=== PATIENT | male | born 1955 | race Two or more races ===

== ENCOUNTER → 2016-08-08 | Day surgery (SDC) | payer MEDICAID ==
[2016-08-08] VITALS (8 sets, daily range): BP systolic 110–132; BP diastolic 52–83
[~2016-08-08] VITALS: Ht 174 cm; Wt 73.0 kg
[~2016-08-08] MED LIST: CALCIUM600 M1 PO; FOLGARD TABLET1 EAC1 PO; LR 1000ml 1,000 ML IVLG SCH; LR 1000ml ONE; LUPRON DEPOT3.75 M1 IM; Midazolam 2mg/2ml Inj ONE; Propofol 10mg/ml 20ml IV ONE; fentaNYL 100 mcg/2 mL IV ONE
--- NOTE | 2016-08-08 10:40 | Pre-Procedure Note/Attestation ---
Pre-Procedure Note/Attestation Complete Prior to Procedure Planned Procedure: not applicable Procedure Narrative: screening colon Indications for Procedure Pre-Operative Diagnosis: screening Attestation I attest that I discussed the nature of the procedure; its benefits; risks and complications; and alternatives (and the risks and benefits of such alternatives ), prior to the procedure, with the patient (or the patient's legal service support representative). I attest that, if there was a reasonable possibility of needing a blood transfusion, the patient (or the patient's legal service support representative) was given the [facility] standardized written summary, pursuant to the Jamie [place]ie Blood Safety Act ([place] Health and Safety Code # 1645, as amended). I attest that I re-evaluated the patient just prior to the surgery and that there has been no change in the patient's H&P, except as documented below: TATI COOPER Aug 08, 2016 10:40
--- NOTE | 2016-08-08 10:41 | Short Stay Surgery H&P ---
History of Present Illness History of Present Illness Chief Complaint se recent consult HPI Sukh Barreto is a 61 year old male who was admitted on for Colon Screening Patient History Allergies: Coded Allergies: No Known Allergies (Unverified , 08/08/16) PAST MEDICAL HISTORY: Past Surgeries: Social History: Medication History Scheduled Calcium Carbonate (Calcium), 600 MG PO DAILY, (Reported) Leuprolide Acetate (Lupron Depot), Unknown Dose IM once a month, (Reported) Vit D3/Folic Acid/B2/B6/B12 (Folgard Tablet), 15,000 UNITS PO ONCE A WEEK, ( Reported) Physical Exam Vital Signs Last Vital Signs Date Time Temp Pulse Resp B/P Pulse Ox O2 Delivery O2 Flow Rate FiO2 08/08/16 09:28 97.7 56 18 113/83 100 Room Air Plan Attestation Are the patient's medical conditions optimized for surgery? TATI COOPER Aug 08, 2016 10:41
--- NOTE | 2016-08-08 11:13 | Anethesia Preoperative Eval ---
Anesthesia Pre-op PMH/ROS General Date of Evaluation: Aug 08, 2016 Time of Evaluation: 10:56 Anesthesiologist: Federico ASA Score: ASA 2 Mallampati Score Class I : Soft palate, uvula, fauces, pillars visible Class II: Soft palate, uvula, fauces visible Class III: Soft palate, base of uvula visible Class IV: Only hard plate visible Mallampati Classification: Class II Surgeon: Dom Diagnosis: Colon CA screning Surgical Procedure: Colonoscopy Anesthesia History: none Family History: no anesthesia problems Allergies: Coded Allergies: No Known Allergies (Unverified , 08/08/16) Medications: see eMAR Past Medical History Cardiovascular: Denies: CAD, HTN, CT, arrhythmia, other, valve dz Pulmonary: Denies: COPD, [place], asthma, other Gastrointestinal/Genitourinary: Reports: GERD, other - Prostate CA s/p Sx, Denies: CRI, ESRD Neurologic/Psychiatric: Denies: CVA, TIA, dementia, depression/anxiety, other Endocrine: Denies: DM, hypothyroidism, other, steroids HEENT: Denies: [place] (L), [place] (R), cataract (L), cataract (R), glaucoma, other Hematology/Immune: Denies: DVT, anemia, bleeding disorder, other Musculoskeletal/Integumentary: Denies: DDD, DJD, OA, RA, edema, other PMH Narrative: as a car Anesthesia Pre-op Phys. Exam Physician Exam Last Vital Signs Date Time Temp Pulse Resp B/P Pulse Ox O2 Delivery O2 Flow Rate FiO2 08/08/16 09:28 97.7 56 18 113/83 100 Room Air Constitutional: NAD Neurologic: CN 2-12 intact Cardiovascular: RRR, no M/R/G Respiratory: CTA Gastrointestinal: S/NT/ND Airway Exam Mallampati Score: Class II MO: full Neck: flexible ROM: full Teeth: intact Dentures: no lower, no upper Anesthesia Pre-op A/P Studies Pre-op Studies: EKG - NSR Risk Assessment & Plan Assessment: ASA 2 Plan: MAC Status Change Before Surgery: No Pre-Antibiotics Drug: none TAMMIE GUARDADO M.D. Aug 08, 2016 11:13
--- NOTE | 2016-08-08 11:22 | Endoscopy Procedure Note ---
Endoscopy Procedure Note Indication for Procedure: screening Procedures Performed: colonoscopy Operative Findings/Diagnosis: one polyp Specimen: yes Pt Tolerated Procedure Well: Yes Estimated Blood Loss: none Anesthesiologist: jimmie Anesthesia: MAC Implant(s) used?: No 50 yrs or older w/o bx or poly: No 10yrs. F/U not recommended: Yes If not recommended, why?: Above average risk 10 yrs. F/U needed: Yes 18 years or older w/prev. colo: No TATI COOPER Aug 08, 2016 11:22
--- NOTE | 2016-08-08 11:31 | Immediate Post-Op Evaluation ---
Immediate Post-Op Evalulation Immediate Post-Op Evalulation Procedure: Colonoscopy polipectomy Date of Evaluation: Aug 08, 2016 Time of Evaluation: 11:29 IV Fluids: 300 Blood Products: none Estimated Blood Loss: none Urinary Output: no ne Blood Pressure Systolic: 116 Blood Pressure Diastolic: 54 Pulse Rate: 72 Respiratory Rate: 20 O2 Sat by Pulse Oximetry: 99 Temperature (Fahrenheit): 97.6 Pain Score (1-10): 1 Nausea: No Vomiting: No Complications none Patient Status: awake, patent Hydration Status: adequate TAMMIE GUARDADO M.D. Aug 08, 2016 11:31
--- NOTE | 2016-08-08 13:38 | 48 Hour Post Anesthesia Eval ---
Post Anesthesia Evaluation Procedure: Colonoscopy polipectomy Date of Evaluation: Aug 08, 2016 Time of Evaluation: 13:37 Blood Pressure Systolic: 116 0: 52 Pulse Rate: 64 Respiratory Rate: 20 Temperature (Fahrenheit): 97.6 O2 Sat by Pulse Oximetry: 99 Airway: patent Nausea: No Vomiting: No Pain Intensity: 1 Hydration Status: adequate Cardiopulmonary Status: stable Mental Status/LOC: patient returned to baseline Follow-up Care/Observations: n/a Post-Anesthesia Complications: none Follow-up care needed: ready to discharge TAMMIE GUARDADO M.D. Aug 08, 2016 13:38
--- NOTE | 2016-08-08 20:18 | Procedure Note ---
DATE OF PROCEDURE: 08/08/2016 SURGEON: Juan Manuel Fernandes M.D. PROCEDURE: Colonoscopy with snare polypectomy. ANESTHESIOLOGIST: Lester Caballero M.D. INSTRUMENT: Olympus adult flexible colonoscope. INDICATION: Screening colonoscopy evaluation. REASON FOR PROCEDURE: The procedure, risks, benefits, and possible consequences, including hemorrhage, aspiration, perforation and infection, and alternative treatments, were explained to the patient/legal guardian by Dr. Juan Manuel Fernandes and the patient/legal guardian understood and accepted these risks. DESCRIPTION OF PROCEDURE: After informed consent was obtained and the patient was adequately sedated, first rectal exam was performed, which was normal. Then, the scope was advanced from the rectum into the cecum and then subsequently into the terminal ileum. Quality of prep was good. The patient had one inflammatory-looking polyp in the rectosigmoid area, measured roughly about 5 mm, removed with the snare polypectomy technique. Unfortunately, the last polyps were retrieved. There was no other further polyp is seen. No other further pathology is seen. Retroflexion of rectum showed evidence of internal hemorrhoids. The patient also had on examination external hemorrhoids. The patient tolerated the procedure very well without any complication. SUMMARY OF FINDINGS: 1. Internal and external hemorrhoids. 2. One colonic polyp. RECOMMENDATIONS: Repeat colonoscopy in five years. Juan Manuel Fernandes M.D. DR: EVERTON JOB#: [id number] CC:
== END | disposition home or self-care (01) ==
LOC: GAS 08:44
DX: Z12.11 Encounter for screening for malignant neoplasm of colon (principal); D12.7 Benign neoplasm of rectosigmoid junction; K64.4 Residual hemorrhoidal skin tags; K64.8 Other hemorrhoids; K21.9 Gastro-esophageal reflux disease without esophagitis; Z85.46 Personal history of malignant neoplasm of prostate
CPT/HCPCS: 45385; 93005; J2250; J2704; J3010; J7120; Z7512; 94003; 94150